=== PATIENT | male | born 1990 | race Caucasian/White ===

== ENCOUNTER 2017-02-26 09:04 | Emergency (ER) | payer OTHER ==
[2017-02-26 10:00] LABS: BASO % 0.2 % (0.2-1.2); EOS # 0.3 10_X3_uL (0.0-0.5); EOS % 3.8 % (0.8-7.0); GRAN # 4.9 10_X3_uL (1.8-5.4); GRAN % 60.1 % (34.0-67.9); HEMATOCRIT 43.3 % (40-51); HEMOGLOBIN 15.3 g/dL (13.7-17.5); LYMPH # 2.1 10_X3_uL (1.3-3.6); LYMPH % 26.2 % (21.8-53.1); MEAN CORPUSCULAR HEMOGLOBIN 31.4 pg (27.0-33.0); MEAN CORPUSCULAR HGB CONC 35.3 g/dL (32.0-36.0); MEAN CORPUSCULAR VOLUME 88.7 fL (79-92); MEAN PLATELET VOLUME 9.6 fl (7.5-11.5); MONO # 0.8 10_X3_uL (0.3-0.8); MONO % 9.7 % (5.3-12.2); PLATELET COUNT 279 x10_3/uL (163-337); RED BLOOD COUNT 4.88 x10_6/uL (4.6-6.1); RED CELL DISTRIBUTION WIDTH 12.7 % (11.6-14.4); WHITE BLOOD COUNT 8.2 x10_3/uL (4.2-9.1)
[2017-02-26 10:13] LABS: BLOOD UREA NITROGEN 15 mg/dL (7-18); CALCIUM 9.6 mg/dL (8.7-10.7); CARBON DIOXIDE 26 mmol/L (21-32); CREATININE 0.9 mg/dL (0.6-1.3); GLUCOSE,RANDOM 100 mg/dL (70-99); POTASSIUM 4.1 mmol/L (3.5-5.1); SODIUM 136 mmol/L (136-145)
== END 2017-02-26 11:15 | disposition home or self-care (01) ==
LOC: ER 09:04
PROVIDERS: Emergency Medicine
DX: R42 Dizziness and giddiness (principal); R09.81 Nasal congestion; I10 Essential (primary) hypertension; R51 Headache; Z79.899 Other long term (current) drug therapy
CPT/HCPCS: 36415; 70450; 80048; 85025; 99284-25